=== PATIENT | female | born 1980 | race Caucasian/White ===

== ENCOUNTER 2018-11-22 08:38 | Emergency (ER) | payer SELFPAY ==
[~2018-11-22] VITALS: Ht 157.5 cm; Wt 49.9 kg
[2018-11-22 08:50] VITALS: BP 139/98
--- NOTE | 2018-11-22 08:50 | NUR ---
PT C/O BILATERAL ARM AND NECK NUMBNESS STARTED THIS MORNING, PT IS AAOX4, NOT IN RESPIRATORY DISTRESS, V/S STABLE, KEPT RESTED AND COMFORTABLE, WILL CONTINUE TO MONITOR.
--- NOTE | 2018-11-22 08:56 | NUR ---
SEEN AND EXAMINED BY DR. MCDANIEL.
[2018-11-22] MEDS ORDERED: LORAZEPAM 0.5 MG TABLET ONE (09:15)
--- NOTE | 2018-11-22 09:16 | NUR ---
ATIVAN 0.5MG PO GIVEN VERBAL ORDERED BY .
--- NOTE | 2018-11-22 09:52 | NUR ---
Patient discharged to home in stable condition. Written and verbal after care instructions given. Patient verbalizes understanding of instruction.
== END 2018-11-22 09:53 | disposition home or self-care (01) ==
LOC: ER 08:38
DX: R20.2 Paresthesia of skin (principal); F41.9 Anxiety disorder, unspecified; Z88.6 Allergy status to analgesic agent